=== PATIENT | female | born 1970 | race African-American/Black ===

== ENCOUNTER 2019-03-03 00:18 | Emergency (ER) | payer SELFPAY | END 2019-03-03 04:31 | disposition home or self-care (01) | LOC: JER 00:18 ==

== ENCOUNTER 2019-03-18 03:47 | Inpatient (IN) | payer OTHER ==
--- NOTE | 2019-03-18 04:04 | PDOC ---
Attending Attestation - Resident Resident Name: RazGinger - ED Attending Attestation I have performed the following: I have examined & evaluated the patient, The case was reviewed & discussed with the resident, I agree w/resident's findings & plan - HPI HPI: 03/18/19 04:59 Pt comes with total body pain and states that she needs admission for her interferon. Pt states that she has been dropping things and that her arms are weak. - Physicial Exam PE: 03/18/19 05:00 Agree with resident exam - Medical Decision Making 03/18/19 05:00 Pt will have basic labs and EKG and cxr and she have a neuro consult for MS flare. 03/18/19 19:53 Pt signed out to the day ER team. They will follow results and admit patient
[2019-03-18 04:53] VITALS: BMI 30.4
[2019-03-18 05:21] LABS: BASO % 0.7 % (0-2.0); EOS % 2.4 % (0-4.5); HEMATOCRIT 33.2 % (32.4-45.2); HEMOGLOBIN 11.5 GM/dL (10.7-15.3); LYMPH % 52.7 % (8-40); MCH 31.3 pg (25.7-33.7); MCHC 34.5 g/dl (32.0-36.0); MEAN CELL VOLUME 90.8 fl (80-96); MEAN PLT VOLUME 9.5 fl (7.5-11.1); MONO % 8.5 % (3.8-10.2); NEUT % 35.7 % (42.8-82.8); PLATELET COUNT 199 K/MM3 (134-434); RBC 3.66 M/mm3 (3.60-5.2); RDW 14.9 % (11.6-15.6); WHITE BLOOD COUNT 8.4 K/mm3 (4.0-10.0)
--- NOTE | 2019-03-18 05:36 | PDOC ---
History of Present Illness - General Chief Complaint: Pain Stated Complaint: WEAKNESS Time Seen by Provider: 03/18/19 03:57 History Source: Patient Exam Limitations: No Limitations - History of Present Illness Initial Comments: 03/18/19 05:32 48YOF with h/o MS (diagnosed 12 years ago and was well-controlled on Augabio until 6 months ago when she lost access to it) who p/w all-over body pain, hand cramps and weakness, and morning-time vision problems worsening for the past few days, typical of her MS flares. Her last MS flare was about 2 weeks ago at which time she was seen here at [facility] in the ED. She notes that usually when she has an MS flare like this, she gets admitted to the hospital for interferon infusion. She also notes that she just moved here from [place] where she had been receiving her primary care and had a regular neurologist. She has insurance but has not yet been able to establish neurology care here in [place]. EMS notes that they have taken her to other emergency departments in the area recently for similar pain. Past History - Past Medical History Allergies/Adverse Reactions: Allergies Allergy/AdvReac Type Severity Reaction Status Date / Time acetaminophen [From Vicodin] Allergy Verified 03/18/19 05:41 hydrocodone [From Vicodin] Allergy Verified 03/18/19 05:41 tramadol Allergy Verified 03/18/19 05:41 Home Medications: Ambulatory Orders Atorvastatin Calcium 40 mg PO HS 03/03/19 Cephalexin Monohydrate [Keflex -] 500 mg PO BID #14 capsule 03/03/19 Duloxetine HCl [Cymbalta] 20 mg PO DAILY 03/03/19 Lisinopril 5 mg PO DAILY 03/03/19 Oxycodone HCl/Acetaminophen [Percocet 10-325 mg Tablet] 1 each PO TID #60 tablet MDD 3 03/03/19 Prednisolone [Millipred] 5 mg PO BID 03/03/19 Teriflunomide [Aubagio] 14 mg PO DAILY 03/03/19 COPD: No - Suicide/Smoking/Psychosocial Hx Smoking History: Current every day smoker Have you smoked in the past 12 months: No Number of Cigarettes Smoked Daily: 4 Information on smoking cessation initiated: Yes Hx Alcohol Use: Yes Drug/Substance Use Hx: No Review of Systems - Review of Systems Able to Perform ROS?: Yes Comments:: 03/18/19 05:43 GEN: no fever, chills, malaise, generalized weakness, or weight change HEENT: no ear pain, sore throat, vision change, or eye pain CV: no chest pain, palpitations, lightheadedness, syncope, or edema RESP: no cough, wheezing, or SOB GI: no abdominal pain, nausea, vomiting, diarrhea, constipation, or white/black/ bloody stool : no dysuria, hematuria, incontinence, retention, bleeding, or discharge MSK: muscle weakness/pain, hand cramps NEURO: no headache, seizure, vertigo, numbness, tingling, or focal weakness PSYCH: no substance use, no behavior change SKIN: no jaundice, no rash ROS otherwise negative except as noted in HPI *Physical Exam - Vital Signs Last Vital Signs Temp Pulse Resp BP Pulse Ox 98.2 F 77 18 138/67 98 03/18/19 03:55 03/18/19 03:55 03/18/19 03:55 03/18/19 03:55 03/18/19 03:55 - Physical Exam Comments: 03/18/19 05:56 GENERAL: a bit uncomfortable but nontoxic-appearing, A/Ox4, answers questions appropriately, obese HEENT: PERRLA, EOMI, moist mucous membranes NECK/BACK: no midline ttp, no spinal stepoff or deformity, no hematoma, full ROM , neck supple CARDIOVASCULAR: regular rate/rhythm, normal S1S2, no MGR, strong peripheral pulses, capillary refill <2 seconds, extremities wwp, no edema LUNGS/RESPIRATORY: no respiratory distress, CTAB GI/ABDOMEN: symmetric [id number], normoactive BS, soft, no ttp, no midline pulsatile masses : no CVA tenderness EXTREMITIES: no muscle atrophy, no acute deformity SKIN: warm and dry, no pallor, no jaundice, no rash, no bruising, no skin breakdown, no cuts, no lesions NEUROLOGICAL: GCS 15, CN II-XII grossly intact, 5/5 strength proximally and distally, no facial droop Heart Score/ECG Review #1 Sinus rhythm, rate of 71, normal axis and intervals, TWI in III and aVF, no other ST-T changes ED Treatment Course - LABORATORY CBC & Chemistry Diagram: 03/19/19 06:40 03/19/19 06:40 - ADDITIONAL ORDERS Additional order review: 03/18/19 05:12 RBC 3.66 MCV 90.8 MCHC 34.5 RDW 14.9 MPV 9.5 Neutrophils % 35.7 L Lymphocytes % 52.7 H Monocytes % 8.5 Eosinophils % 2.4 Basophils % 0.7 Medical Decision Making - Medical Decision Making 48YOF with h/o MS p/w stated flare with body aches, hand weakness, and vision changes. Initial Vital Signs Temp Pulse Resp BP Pulse Ox 98.2 F 77 18 138/67 98 03/18/19 03:55 03/18/19 03:55 03/18/19 03:55 03/18/19 03:55 03/18/19 03:55 Physical Exam: As noted in physical exam section. Most likely MS flare given patient's description of prior episodes and the fact she has been unable to take her maintenance medication. Much less likely but still considered are electrolyte derangement, viral syndrome, hypothyroidism, other endocrine disorder, anemia, etc. It is unclear why the patient may have gotten interferon infusion in the past for this (she states "1000 a day for three days interferon infusion"). Will call neurology for recommendations and consultation. EKG: Reviewed; see HEART Score/ECG Section. Laboratory Tests 03/18/19 03/18/19 05:12 05:12 WBC 8.4 RBC 3.66 Hgb 11.5 Hct 33.2 MCV 90.8 MCH 31.3 MCHC 34.5 RDW 14.9 Plt Count 199 MPV 9.5 Absolute Neuts (auto) 3.0 Neutrophils % 35.7 L Lymphocytes % 52.7 H Monocytes % 8.5 Eosinophils % 2.4 Basophils % 0.7 Nucleated RBC % 0 Sodium 144 Potassium 3.6 Chloride 110 H Carbon Dioxide 28 Anion Gap 7 L BUN 27.4 H Creatinine 1.1 Est GFR (CKD-EPI)AfAm 68.27 Est GFR (CKD-EPI)NonAf 58.91 Random Glucose 119 H Calcium 8.6 Total Bilirubin 0.2 AST 23 ALT 39 Alkaline Phosphatase 132 H Total Protein 6.2 L Albumin 3.4 03/18/19 05:[address] Kearns. He will see her in the hospital, recommends solumedrol 500 bid. SoluMedrol 500 mg IVPB order placed. The Pt is unsafe for discharge at this time. They require further hospital observation, workup, and treatment. Microblog sent to [facility] for admission (PCP is Matty Everett). Blank Decision to Admit order is placed per ED protocol. RAD/CHEST X-RAY PORTABLE* Chest: Admission. Cough. There are no prior studies for comparison. A single view of the chest reveals clear well aerated lungs, normal mediastinum and sharp angles. An acute process is not seen. There may be some linear platelike atelectasis or scarring at the left base. The costophrenic angles are sharp. The bones and soft tissues are intact. Impression : No acute chest pathology. Possible linear scarring or atelectasis left base. *DC/Admit/Observation/Transfer Diagnosis at time of Disposition: Multiple sclerosis - Discharge Dispostion Condition at time of disposition: Guarded Decision to Admit order: Yes - Referrals - Patient Instructions - Post Discharge Activity
[2019-03-18 05:44] LABS: ALBUMIN 3.4 g/dl (3.4-5.0); BILIRUBIN,TOTAL 0.2 mg/dL (0.2-1); BLOOD UREA NITROGEN 27.4 mg/dL (7-18); CALCIUM 8.6 mg/dL (8.5-10.1); CREATININE 1.1 mg/dL (0.55-1.3); POTASSIUM 3.6 mmol/L (3.5-5.1); TOT PROT 6.2 g/dl (6.4-8.2)
[2019-03-18] MEDS ORDERED: methylPREDNISolone NA SUCC 125 MG/2 ML VIAL IVPB ONE (06:05)
[2019-03-18] MEDS ORDERED: methylPREDNISolone NA SUCC 125 MG/2 ML VIAL ONE (06:29)
[2019-03-18 07:23] LABS: EPI CELLS 0.6 /HPF (0-5/HPF); HYALINE CASTS 2 /lpf (0-8); URINE APPEARANCE CLEAR; URINE BACTERIA 372.8 /hpf (NEGATIVE); URINE BILIRUBIN NEGATIVE (NEGATIVE); URINE COLOR YELLOW; URINE GLUCOSE (UA) NEGATIVE (NEGATIVE); URINE KETONE NEGATIVE (NEGATIVE); URINE LEUK ESTERASE 1+ (NEGATIVE); URINE NITRITE NEGATIVE (NEGATIVE); URINE PROTEIN NEGATIVE (NEGATIVE); URINE RBC 1 /hpf (0-4); URINE UROBILINOGEN 0.2 mg/dL (0.2-1.0); URINE WBC 1 /hpf (0-5)
--- NOTE | 2019-03-18 10:04 | CON.NEURO ---
Consult - Alcohol/Substance Use Hx Alcohol Use: Yes - Smoking History Smoking history: Current every day smoker Have you smoked in the past 12 months: No Aproximately how many cigarettes per day: 4 Home Medications - Allergies Allergies/Adverse Reactions: Allergies Allergy/AdvReac Type Severity Reaction Status Date / Time acetaminophen [From Vicodin] Allergy Verified 03/18/19 05:41 hydrocodone [From Vicodin] Allergy Verified 03/18/19 05:41 tramadol Allergy Verified 03/18/19 05:41 - Home Medications Home Medications: Ambulatory Orders Atorvastatin Calcium 40 mg PO HS 03/03/19 Cephalexin Monohydrate [Keflex -] 500 mg PO BID #14 capsule 03/03/19 Duloxetine HCl [Cymbalta] 20 mg PO DAILY 03/03/19 Lisinopril 5 mg PO DAILY 03/03/19 Oxycodone HCl/Acetaminophen [Percocet 10-325 mg Tablet] 1 each PO TID #60 tablet MDD 3 03/03/19 Prednisolone [Millipred] 5 mg PO BID 03/03/19 Teriflunomide [Aubagio] 14 mg PO DAILY 03/03/19 Physical Exam-Neuro Vital Signs: Vital Signs Temperature 98.0 F 03/18/19 08:31 Pulse Rate 65 03/18/19 08:31 Respiratory Rate 18 03/18/19 08:31 Blood Pressure 149/90 03/18/19 08:31 O2 Sat by Pulse Oximetry (%) 97 03/18/19 08:31 Labs: CBC, BMP 03/18/19 05:12 03/18/19 05:12 Assessment/Plan cc pain and cramping . numbness waist down HPI 48 year old AA female , originally from [place]. She recenlty move to [place] two weeks ago. She has hiistory of MS, MS , HTN. She has not seen neurologist for one year and she is not taking aubagio for six months. Patient also have histoyr of depression and being treated with cymbalta. She came to hospital as she felt she need to be treated with steroid. She do get thsese cramps in leg and worsenign of numbness in both thigh area. Patient is able to walk wtih walker. She usually get treated with iv steroid when she has these symptoms. PMH MS, HTN, Anxiety , hld Past History Allergies Allergy/AdvReac TypA Severity Reaction Status Date / Time acetaminophen [From Vicodin] Allergy Verified 03/18/19 05:41 hydrocodone [From Vicodin] Allergy Verified 03/18/19 05:41 tramadol Allergy Verified 03/18/19 05:41 Home Medications: Atorvastatin Calcium 40 mg PO HS 03/03/19 Cephalexin Monohydrate [Keflex -] 500 mg PO BID #14 capsule 03/03/19 Duloxetine HCl [Cymbalta] 20 mg PO DAILY 03/03/19 Lisinopril 5 mg PO DAILY 03/03/19 Oxycodone HCl/Acetaminophen [Percocet 10-325 mg Tablet] 1 each PO TID #60 tablet MDD 3 03/03/19 Prednisolone [Millipred] 5 mg PO BID 03/03/19 Teriflunomide [Aubagio] 14 mg PO DAILY 03/03/19 ROS, FH reviewed in chart NEUROLOGICAL EXAMINATION Alert oriented x 3, speech is normal, neck supple, vss eomi, pupils reactive, no face asymmetry, face sensation is normal , vf is normal motor 5/5 in upper extremity lower extremity grade 4 distally in dorsiflexion proximal hip flexion and extension 5- and she is able to walk diminished sensation below both groin area to pin prick and fine touch sensation in upper extremity is normal reflex are generalized diminished No imaging available Assessment/Plan MS ofr 15 years uses cane to ambulate and suppseo to be on Aubagio. Plan: I would do mri of brain, t and L spine with contrast - iv solumedrol for three days - pt - resume home medication Thanking you so much Navin Kearns MD
[2019-03-18] MEDS ORDERED: oxyCODONE HCL 5 MG TABLET PO PRN (10:06)
[2019-03-18] MEDS ORDERED: methylPREDNISolone NA SUCC 1000 MG/8 ML VIAL IVPB SCH (10:15)
--- NOTE | 2019-03-18 11:38 | HP ---
CHIEF COMPLAINT: lower extremity pain/numbness (MS flare) PCP:Dr. Everett HISTORY OF PRESENT ILLNESS: 48 y/o female with PMH of MS (diagnosed 12 years ago), HTN, HLD presents to the ED with an MS flare- patient states that for the past 4-5 days she has been having worsening lower extremity pain/weakness, difficulty gripping onto certain items and has been having worsening vision changes in the AM. She has been living in a jail with her son and had taken over cooking duties for the past few days and was on her feet fredy more than usual and she thinks this may have caused her MS to flare up. she states that this is typical of her MS flares. She moved her 2 weeks ago from [place], and has not seen a neurologist in 6 months nor has she had access to her medication (augabio) for the same amount of time. she states that when she had been getting MS flares in the past 6 months she has been putting topical creams like icy/hot on with minimal relief, she states that the pain got so severe over the past few days which prompted her to come to the ER> she denies any systemic symptoms, sick contacts or recent travel. ER course was notable for: (1)vitals and labs wnl (2)dr. camacho consulted (3)given 500mg solumedrol and to cont BID for 3 days Recent Travel: moved from [place] 2 weeks ago PAST MEDICAL HISTORY: see above PAST SURGICAL HISTORY: partial hysterectomy; 2 knee surgeries Social History: Smoking:current everyday smoker ; smokes 12 cigarettes since the age of 20 Alcohol:denies Drugs: denies Family History: mom: DM/HTN, paternal grandmother breast CA, maternal grandfather leukemia Allergies acetaminophen [From Vicodin] Allergy (Verified 03/18/19 05:41) hydrocodone [From Vicodin] Allergy (Verified 03/18/19 05:41) tramadol Allergy (Verified 03/18/19 05:41) HOME MEDICATIONS: Home Medications Medication Instructions Recorded Atorvastatin Calcium 40 mg PO HS 03/03/19 Cephalexin Monohydrate [Keflex -] 500 mg PO BID #14 capsule 03/03/19 Duloxetine HCl [Cymbalta] 20 mg PO DAILY 03/03/19 Lisinopril 5 mg PO DAILY 03/03/19 Oxycodone HCl/Acetaminophen 1 each PO TID #60 tablet MDD 3 03/03/19 [Percocet 10-325 mg Tablet] Prednisolone [Millipred] 5 mg PO BID 03/03/19 Teriflunomide [Aubagio] 14 mg PO DAILY 03/03/19 REVIEW OF SYSTEMS CONSTITUTIONAL: Absent: fever, chills, diaphoresis, generalized weakness, malaise, loss of appetite, weight change HEENT: Absent: rhinorrhea, nasal congestion, throat pain, throat swelling, difficulty swallowing, mouth swelling, ear pain, eye pain, visual changes CARDIOVASCULAR: Absent: chest pain, syncope, palpitations, irregular heart rate, lightheadedness , peripheral edema RESPIRATORY: Absent: cough, shortness of breath, dyspnea with exertion, orthopnea, wheezing, stridor, hemoptysis GASTROINTESTINAL: Absent: abdominal pain, abdominal distension, nausea, vomiting, diarrhea, constipation, melena, hematochezia GENITOURINARY: Absent: dysuria, frequency, urgency, hesitancy, hematuria, flank pain, genital pain MUSCULOSKELETAL: Present: myalgia, arthraliga Absent:, joint swelling, back pain, neck pain SKIN: Absent: rash, itching, pallor HEMATOLOGIC/IMMUNOLOGIC: Absent: easy bleeding, easy bruising, lymphadenopathy, frequent infections ENDOCRINE: Absent: unexplained weight gain, unexplained weight loss, heat intolerance, cold intolerance NEUROLOGIC: Absent: headache, focal weakness or paresthesias, dizziness, unsteady gait, seizure, mental status changes, bladder or bowel incontinence PSYCHIATRIC: Absent: anxiety, depression, suicidal or homicidal ideation, hallucinations. PHYSICAL EXAMINATION Vital Signs - 24 hr 03/18/19 03/18/19 03:55 08:31 Temperature 98.2 F 98.0 F Pulse Rate 77 Pulse Rate [ 65 Left Radial] Respiratory 18 18 Rate Blood Pressure 138/67 Blood Pressure 149/90 [Right Arm] O2 Sat by Pulse 98 97 Oximetry (%) GENERAL: Awake, alert, and fully oriented, in slight acute distress. EYES: PEERLA: EOMIl; no scleral icterus . NECK: no JVD:no lymphadenopathy LUNGS: CTA B/L; no rales, rhonchi or wheezing HEART: Regular rate and rhythm, normal S1 and S2 without murmur, rub or gallop. ABDOMEN: Soft, nontender, not distended, normoactive bowel sounds, no guarding, no rebound, no masses. No hepatomegaly or splenomegaly. EXTREMITIES: warm; well-perfused no clubbing/cyanosis or edema NEUROLOGICAL: Cranial nerves II-XII intact. Normal speech. Normal gait. UE B/L 5/5 strength B/L sensation intact throghout; B/L LE 3-4/5 strength B/L diminished sensation with SKIN: Warm, dry, normal turgor, no rashes or lesions noted, normal capillary refill. Laboratory Results - last 24 hr 03/18/19 03/18/19 03/18/19 05:12 05:12 06:10 WBC 8.4 RBC 3.66 Hgb 11.5 Hct 33.2 MCV 90.8 MCH 31.3 MCHC 34.5 RDW 14.9 Plt Count 199 MPV 9.5 Absolute Neuts (auto) 3.0 Neutrophils % 35.7 L Lymphocytes % 52.7 H Monocytes % 8.5 Eosinophils % 2.4 Basophils % 0.7 Nucleated RBC % 0 Sodium 144 Potassium 3.6 Chloride 110 H Carbon Dioxide 28 Anion Gap 7 L BUN 27.4 H Creatinine 1.1 Est GFR (CKD-EPI)AfAm 68.27 Est GFR (CKD-EPI)NonAf 58.91 Random Glucose 119 H Calcium 8.6 Total Bilirubin 0.2 AST 23 ALT 39 Alkaline Phosphatase 132 H Total Protein 6.2 L Albumin 3.4 Urine Color Yellow Urine Appearance Clear Urine pH 5.0 Ur Specific [place] 1.006 L Urine Protein Negative Urine Glucose (UA) Negative Urine Ketones Negative Urine Blood Negative Urine Nitrite Negative Urine Bilirubin Negative Urine Urobilinogen 0.2 Ur Leukocyte Esterase 1+ H Urine WBC (Auto) 1 Urine RBC (Auto) 1 Urine Casts (Auto) 2 U Epithel Cells (Auto) 0.6 Urine Bacteria (Auto) 372.8 ASSESSMENT/PLAN: 48 y/o female with PMH of MS (diagnosed 12 years ago), HTN, HLD presents to the ED with 4-5 days of worsening lower extremity pain/weakness, difficulty gripping onto certain items and has been having worsening vision changes in the AM likely 2/2 MS #MS flare patients is likely having an MS flare -already received 500mg solumedrol x1 -will c/w 500 mg solumedrol BID for 3 days -Dr. Kearns consulted -OLI brain, thoracic/lumbar spine ordered -PRN oxy for pain -will need outpatient neuro referral upon d/c -PT eval #HTN c/w lisinopril 5mg daily #HLD c/w atorvastatin F/E/N not on fluids monitor electrolytes soidum controlled diet DVT PPX: lovenox Problem List - Problem (1) HTN (hypertension) Code(s): I10 - ESSENTIAL (PRIMARY) HYPERTENSION (2) Multiple sclerosis Code(s): G35 - MULTIPLE SCLEROSIS Visit type - Emergency Visit Emergency Visit: Yes ED Registration Date: 03/18/19 Care time: The patient presented to the Emergency Department on the above date and was hospitalized for further evaluation of their emergent condition. - New Patient This patient is new to me today: Yes Date on this admission: 03/18/19 - Critical Care Critical Care patient: No ATTENDING PHYSICIAN STATEMENT I saw and evaluated the patient. I reviewed the resident's note and discussed the case with the resident. I agree with the resident's findings and plan as documented. SUBJECTIVE: OBJECTIVE: ASSESSMENT AND PLAN:
[2019-03-18] MEDS: ENOXAPARIN NA (PORCINE) 40 MG/0.4 ML DISP.SYRIN SQ SCH (12:08)
[2019-03-18] MEDS: LISINOPRIL 5 MG TABLET (FP) PO SCH (12:09)
[2019-03-18] MEDS: NICOTINE 7 MG/24 HOURS TOPICAL PATCH TD SCH (12:09)
[2019-03-18] MEDS ORDERED: MORPHINE SULFATE 2 MG/ML VIAL IVPB ONE (12:30)
--- NOTE | 2019-03-18 12:30 | PN ---
Teaching Attending Note Name of Resident: Bernadette Ley ATTENDING PHYSICIAN STATEMENT I saw and evaluated the patient. I reviewed the resident's note and discussed the case with the resident. I agree with the resident's findings and plan as documented. SUBJECTIVE:48yo f wtih PMH HTN, dyslipidemia and MS who has not been taking Aubagio for about 6 months now (family issues) presented to the ER with progressively worsening blurred vision,. assoc with numbness and tingling of her hands and feet,. similiar presentations in previous flares. has been hospitalized twice in the past for high dose steroids iwth relief. denies CP, SOB, fever, chills, N/V/C/D ambulates with RW OBJECTIVE: Last Vital Signs Temp Pulse Resp BP Pulse Ox 98.0 F 65 18 149/90 97 03/18/19 08:31 03/18/19 08:31 03/18/19 08:31 03/18/19 08:31 03/18/19 08:31 General NAd HEENT EOMI, PERRL Cv S1 S2 RRR no murmur/rub/gallop Neuro CN grossly intact, ASSESSMENT AND PLAN: 48yo F with PMH hNT, dyslipidemia, depression, and MS presented to the ER with blurred vision wiht numbnes in all extremities presenting with MS flare 1. MS Flare- admit to medicine. no signs of infection. start on Medrol 500mg BID for 3 days and pain control. will obtain MRI of brain cervical and lumbar spine to r/o stenosis vs plaquing. just moved here from [place]. will need to establish neurology follow up to be re-started on medications. monitor sugars while on high dose steroids 2. HTN- re-start home medications 3. Dyslipidemia- statin 4. depression- cymbalta 5. DVT ppx- lovenox
--- NOTE | 2019-03-18 14:19 | EKG ---
Test Reason : Blood Pressure : / mmHG Vent. Rate : 071 BPM Atrial Rate : 071 BPM P-R Int : 120 ms QRS Dur : 088 ms QT Int : 382 ms P-R-T Axes : 053 080 024 degrees QTc Int : 415 ms NORMAL SINUS RHYTHM NONSPECIFIC T WAVE ABNORMALITY ABNORMAL ECG NO PREVIOUS ECGS AVAILABLE Confirmed by MD Aneudy, Papito ([id number]) on 03/18/2019 2:18:41 PM Referred By: Confirmed By:Papito Amado MD
[2019-03-18] MEDS: DULoxetine HCL 20 MG CAPSULE.DR PO SCH (14:57)
[2019-03-18] MEDS ORDERED: PT OWN MED DRAWER 7, Y5N ONE (17:24)
[2019-03-18] MEDS: methylPREDNISolone NA SUCC 1000 MG/8 ML VIAL IVPB SCH (17:29)
[2019-03-18] MEDS: oxyCODONE HCL 5 MG TABLET PO PRN (18:22)
[2019-03-18] MEDS ORDERED: morphine SULFATE 4 MG/ML VIAL IVPUSH ONE (20:19)
[2019-03-18] MEDS: ATORVASTATIN CA 40 MG TABLET (FP) PO SCH (22:14)
[2019-03-18] MEDS: MELATONIN 1 MG TABLET PO SCH (22:14)
[2019-03-19] MEDS: oxyCODONE HCL 5 MG TABLET PO PRN ×5 (04:33→22:54)
[2019-03-19] MEDS: methylPREDNISolone NA SUCC 1000 MG/8 ML VIAL IVPB SCH ×2 (06:26→17:30)
[2019-03-19 07:42] LABS: BASO % 0.2 % (0-2.0); HEMATOCRIT 35.3 % (32.4-45.2); HEMOGLOBIN 11.8 GM/dL (10.7-15.3); LYMPH % 13.1 % (8-40); MCH 30.7 pg (25.7-33.7); MCHC 33.4 g/dl (32.0-36.0); MEAN CELL VOLUME 91.9 fl (80-96); MEAN PLT VOLUME 10.5 fl (7.5-11.1); MONO % 3.7 % (3.8-10.2); PLATELET COUNT 194 K/MM3 (134-434); RBC 3.84 M/mm3 (3.60-5.2); RDW 14.6 % (11.6-15.6); WHITE BLOOD COUNT 21.8 K/mm3 (4.0-10.0)
[2019-03-19 07:51] LABS: ALBUMIN 3.5 g/dl (3.4-5.0); BILIRUBIN,TOTAL 0.3 mg/dL (0.2-1); BLOOD UREA NITROGEN 21.4 mg/dL (7-18); CALCIUM 9.3 mg/dL (8.5-10.1); CREATININE 0.8 mg/dL (0.55-1.3); MAGNESIUM 2.1 mg/dL (1.8-2.4); POTASSIUM 4.4 mmol/L (3.5-5.1); TOT PROT 6.5 g/dl (6.4-8.2)
[2019-03-19] MEDS: POLYETHYLENE GLYCOL 3350 119 GM BTL PO SCH ×2 (08:33→10:12)
[2019-03-19] MEDS: NICOTINE 7 MG/24 HOURS TOPICAL PATCH TD SCH ×2 (08:34→10:12)
[2019-03-19] MEDS: DULoxetine HCL 20 MG CAPSULE.DR PO SCH ×2 (08:34→10:12)
[2019-03-19] MEDS: LISINOPRIL 5 MG TABLET (FP) PO SCH ×2 (08:35→10:13)
[2019-03-19] MEDS: DOCUSATE SODIUM 100 MG CAPSULE (FP) PO SCH ×3 (08:35→22:37)
[2019-03-19] MEDS: ENOXAPARIN NA (PORCINE) 40 MG/0.4 ML DISP.SYRIN SQ SCH ×2 (08:35→10:12)
--- NOTE | 2019-03-19 10:09 | PN ---
Progress Note (short form) - Note Progress Note: 48 year old AA female , originally from [place]. She recenlty move to [place] two weeks ago. She has hiistory of MS, MS , HTN. She has not seen neurologist for one year and she is not taking aubagio for six months. Patient also have histoyr of depression and being treated with cymbalta. She came to hospital as she felt she need to be treated with steroid. She do get thsese cramps in leg and worsenign of numbness in both thigh area. Patient is able to walk wtih walker. She usually get treated with iv steroid when she has these symptoms. She is feeling slightly better, no new symtoms. Pain is better on oxycodone and waiting for mri of spine. NEUROLOGICAL EXAMINATION Alert oriented x 3, speech is normal, neck supple, vss eomi, pupils reactive, no face asymmetry, face sensation is normal , vf is normal motor 5/5 in upper extremity lower extremity grade 4 distally in dorsiflexion proximal hip flexion and extension 5- and she is able to walk diminished sensation below both groin area to pin prick and fine touch sensation in upper extremity is normal reflex are generalized diminished No imaging available Assessment/Plan MS of 15 years uses cane to ambulate and supposed to be on Aubagio. Patient came with worsening of pain and acute exacerbation. Plan: I would do mri of brain, t and L spine with contrast - iv solumedrol for three days - pt - resume home medication - would need outpatient neurology follow up Thanking you so much Navin Kearns MD
[2019-03-19 11:17] LABS: ANISOCYTOSIS 0; MACROCYTOSIS 0; PLATELET ESTIMATE NORMAL
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
--- NOTE | 2019-03-19 12:53 | PN ---
Teaching Attending Note Name of Resident: Bernadine Price ATTENDING PHYSICIAN STATEMENT I saw and evaluated the patient. I reviewed the resident's note and discussed the case with the resident. I agree with the resident's findings and plan as documented. SUBJECTIVE:blurred vision slightly improved. diffuse aches also has some slight improvement. denies CP, SOB, fever, chills, N/V/C/D OBJECTIVE: Last Vital Signs Temp Pulse Resp BP Pulse Ox 97.8 F 64 18 149/80 94 L 03/19/19 10:03/19/19 10:00 03/19/19 10:00 03/19/19 10:03/19/19 09:00 General NAd HEENT EOMI, PERRL Cv S1 S2 RRR no murmur/rub/gallop Neuro CN grossly intact, ASSESSMENT AND PLAN: 48yo F with PMH hNT, dyslipidemia, depression, and MS presented to the ER with blurred vision wiht numbnes in all extremities presenting with MS flare 1. MS Flare- slight improvement. MRI head and spine to evaluate extent of disease. on medrol 500mg BID. pain control. neuro on board. will d/w if plan to re-start meds on discharge. 2. HTN-above goal. could be elevated due to pain. may need to titrate meds if persists once pain is controlled 3. Dyslipidemia- statin 4. depression- cymbalta 5. DVT ppx- lovenox
[2019-03-19] MEDS ORDERED: morphine SULFATE 4 MG/ML VIAL IVPUSH ONE (22:28)
[2019-03-19] MEDS ORDERED: morphine SULFATE 4 MG/ML VIAL ONE (22:34)
[2019-03-19] MEDS: ATORVASTATIN CA 40 MG TABLET (FP) PO SCH (22:37)
[2019-03-19] MEDS: MELATONIN 1 MG TABLET PO SCH (22:37)
[2019-03-20 07:28] LABS: BASO % 0.1 % (0-2.0); HEMATOCRIT 33.9 % (32.4-45.2); HEMOGLOBIN 11.4 GM/dL (10.7-15.3); LYMPH % 8.1 % (8-40); MCH 30.5 pg (25.7-33.7); MCHC 33.6 g/dl (32.0-36.0); MEAN PLT VOLUME 10.1 fl (7.5-11.1); MONO % 4.3 % (3.8-10.2); NEUT % 87.5 % (42.8-82.8); PLATELET COUNT 201 K/MM3 (134-434); RBC 3.72 M/mm3 (3.60-5.2); RDW 15.1 % (11.6-15.6)
[2019-03-20 07:59] LABS: ALBUMIN 3.6 g/dl (3.4-5.0); BILIRUBIN,TOTAL 0.3 mg/dL (0.2-1); BLOOD UREA NITROGEN 25.7 mg/dL (7-18); CALCIUM 9.3 mg/dL (8.5-10.1); CREATININE 0.9 mg/dL (0.55-1.3); MAGNESIUM 2.2 mg/dL (1.8-2.4); POTASSIUM 4.3 mmol/L (3.5-5.1); TOT PROT 6.7 g/dl (6.4-8.2)
--- NOTE | 2019-03-20 08:48 | PN ---
Progress Note (short form) - Note Progress Note: 48 year old AA female , originally from [place]. She recenlty move to [place] two weeks ago. She has hiistory of MS, MS , HTN. She has not seen neurologist for one year and she is not taking aubagio for six months. Patient also have histoyr of depression and being treated with cymbalta. She came to hospital as she felt she need to be treated with steroid. She do get thsese cramps in leg and worsenign of numbness in both thigh area. Patient is able to walk wtih walker. She usually get treated with iv steroid when she has these symptoms. She is feeling slightly better, no new symtoms. Pain is better on oxycodone and waiting for mri of spine. NEUROLOGICAL EXAMINATION Alert oriented x 3, speech is normal, neck supple, vss eomi, pupils reactive, no face asymmetry, face sensation is normal , vf is normal motor 5/5 in upper extremity lower extremity grade 4 distally in dorsiflexion proximal hip flexion and extension 5- and she is able to walk diminished sensation below both groin area to pin prick and fine touch sensation in upper extremity is normal reflex are generalized diminished mri done and results sharona pending Assessment/Plan MS of 15 years uses cane to ambulate and supposed to be on Aubagio. Patient came with worsening of pain and acute exacerbation. Plan: MRI of L and T spine done and results pending, mri of brain due today - iv solumedrol for three days finshes today , can be discharge after solumedrol - pt - follow up with her neurologist as outpatient Thanking you so much Navin Kearns MD
[2019-03-20] MEDS: DULoxetine HCL 20 MG CAPSULE.DR PO SCH (09:46)
[2019-03-20] MEDS: LISINOPRIL 5 MG TABLET (FP) PO SCH (09:46)
[2019-03-20] MEDS: ENOXAPARIN NA (PORCINE) 40 MG/0.4 ML DISP.SYRIN SQ SCH (09:46)
[2019-03-20] MEDS: DOCUSATE SODIUM 100 MG CAPSULE (FP) PO SCH ×2 (09:46→22:24)
[2019-03-20] MEDS: NICOTINE 7 MG/24 HOURS TOPICAL PATCH TD SCH (09:47)
[2019-03-20] MEDS: POLYETHYLENE GLYCOL 3350 119 GM BTL PO SCH (09:48)
[2019-03-20 12:40] LABS: ANISOCYTOSIS 0; MACROCYTOSIS 0; PLATELET ESTIMATE NORMAL
[2019-03-20] MEDS: oxyCODONE HCL 5 MG TABLET PO PRN ×3 (14:00→22:29)
--- NOTE | 2019-03-20 14:45 | PN ---
Teaching Attending Note Name of Resident: Bernadine Price ATTENDING PHYSICIAN STATEMENT I saw and evaluated the patient. I reviewed the resident's note and discussed the case with the resident. I agree with the resident's findings and plan as documented. SUBJECTIVE: Some improvement in LE weakness, tingling. Pain appears controlled on oxycodone. No fever/chills. No headache or further visual disturbance. OBJECTIVE: Afebrile, Hemodynamically Stable. Last Vital Signs Temp Pulse Resp BP Pulse Ox 98.0 F 66 20 151/92 97 03/20/19 06:00 03/20/19 10:00 03/20/19 10:00 03/20/19 10:00 03/19/19 21:00 HEENT - Atraumatic, Normocephalic. Heart - S1, S2, SM Lungs - clear to auscultation Abdomen - Soft, non-tender. Bowel Sounds normal. Extremities - no edema, no calf tenderness. Neuro - AAO x 3. Reduced Power bilateral LEs 4/5 Laboratory Results - last 24 hr 03/20/19 03/20/19 06:50 06:50 WBC 25.0 H RBC 3.72 Hgb 11.4 Hct 33.9 MCV 91.0 MCH 30.5 MCHC 33.6 RDW 15.1 Plt Count 201 MPV 10.1 Absolute Neuts (auto) 21.9 H Neutrophils % 87.5 H Neutrophils % (Manual) 82.0 Band Neutrophils % 0.0 Lymphocytes % 8.1 D Lymphocytes % (Manual) 13.0 Monocytes % 4.3 Monocytes % (Manual) 5 Eosinophils % 0.0 Eosinophils % (Manual) 0.0 Basophils % 0.1 Basophils % (Manual) 0.0 Myelocytes % (Man) 0 Promyelocytes % (Man) 0 Blast Cells % (Manual) 0 Nucleated RBC % 0 Metamyelocytes 0 Hypochromia 0 Platelet Estimate Normal Polychromasia 0 Poikilocytosis 0 Anisocytosis 0 Microcytosis 0 Macrocytosis 0 Sodium 140 Potassium 4.3 Chloride 107 Carbon Dioxide 27 Anion Gap 6 L BUN 25.7 H Creatinine 0.9 Est GFR (CKD-EPI)AfAm 87.02 Est GFR (CKD-EPI)NonAf 75.08 Random Glucose 203 H Calcium 9.3 Phosphorus 3.0 Magnesium 2.2 Total Bilirubin 0.3 AST 13 L ALT 36 Alkaline Phosphatase 103 Total Protein 6.7 Albumin 3.6 Current Medications Generic Name Dose Route Start Last Admin Trade Name Phil PRN Reason Stop Dose Admin Atorvastatin Calcium 40 mg 03/18/19 22:00 03/19/19 22:37 Lipitor - PO 40 mg HS [facility] Administration Docusate Sodium 100 mg 03/19/19 10:00 03/20/19 09:46 Colace - PO 100 mg BID [facility] Administration Duloxetine HCl 20 mg 03/18/19 11:15 03/20/19 09:46 Cymbalta - PO 20 mg DAILY [facility] Administration Enoxaparin Sodium 40 mg 03/18/19 10:00 03/20/19 09:46 Lovenox - SQ 40 mg DAILY [facility] Administration Lisinopril 5 mg 03/18/19 11:15 03/20/19 09:46 Prinivil PO 5 mg DAILY [facility] Administration Melatonin 3 mg 03/18/19 22:00 03/19/19 22:37 Melatonin PO 3 mg HS [facility] Administration Methylprednisolone Sodium Succinate 500 mg 03/18/19 11:35 03/19/19 17:30 Solu-Medrol - IVPB 500 mg BID@0600,1800 [facility] Administration Nicotine 7 mg 03/18/19 11:15 03/20/19 09:47 Nicoderm Patch - TD 7 mg DAILY [facility] Administration Oxycodone HCl 10 mg 03/18/19 12:31 03/20/19 14:00 Roxicodone - PO 10 mg Q4H PRN Administration PAIN LEVEL 6-10 Polyethylene Glycol 17 gm 03/19/19 10:00 03/20/19 09:48 Miralax (For Daily Use) - PO Not Given DAILY [facility] Home Medications Medication Instructions Recorded Atorvastatin Calcium 40 mg PO HS 03/03/19 Cephalexin Monohydrate [Keflex -] 500 mg PO BID #14 capsule 03/03/19 Duloxetine HCl [Cymbalta] 20 mg PO DAILY 03/03/19 Lisinopril 5 mg PO DAILY 03/03/19 Oxycodone HCl/Acetaminophen 1 each PO TID #60 tablet MDD 3 03/03/19 [Percocet 10-325 mg Tablet] Prednisolone [Millipred] 5 mg PO BID 03/03/19 Teriflunomide [Aubagio] 14 mg PO DAILY 03/03/19 ASSESSMENT AND PLAN: 48 year old female with history of HLD, Depression, Multiple Sclerosis, presented with bilateral LE weakness, numbness, hand weakness, blurred vision. 1. Acute MS Flare Evaluated by Neuro MRI L/S Spine - bilateral pelvic cysts, no spinal cord lesions. Day 3 IV Solumedrol (Leukocytosis sec to Steroid) Walks with Walker/PT For out-patient PT on discharge to [facility] Declines MRi at this time - amenable to out-patient MRI and Neurology out- patient follow up. Due to LE pain, asking for Oxycodone on discharge. Will give 3 days supply - patient advised to see her PCP on discharge. 2. HTN - continue Lisinopril. 3. Depression - continue Cymbalta 4. Urine Cx - Klebsiella. asymptomatic, but given underlying diagnosis of MS and tendency to bladder neurogenicity and infection prone, will treat empirically with 3 days Levofloxacin. DVT Px - Lovenox SQ
[2019-03-20] MEDS ORDERED: levoFLOXacin 750 MG TABLET PO SCH (15:00)
--- NOTE | 2019-03-20 15:30 | PN ---
Physical Exam: SUBJECTIVE: Patient seen and examined. In no aute distress. Leg pain/ weakness improving significantly. S/p 3 days IV steroid course today. Pt to have MRI brain today. Requested previous MRI records from Dr. Turner pt's neurologist in [place]. OBJECTIVE: Vital Signs Period Temp Pulse Resp BP Sys/Casarez Pulse Ox Last 24 Hr 97.8 F-98.0 F 63-66 18-20 138-151/75-92 97 GENERAL: The patient is awake, alert, and fully oriented, in no acute distress. HEENT: NCAT. No lymphadenopathy. LUNGS: Breath sounds equal, clear to auscultation bilaterally, no wheezes, no crackles, no accessory muscle use. HEART: Regular rate and rhythm, S1, S2 without murmur, rub or gallop. ABDOMEN: Soft, nontender, nondistended, normoactive bowel sounds, no guarding, no rebound, no masses. EXTREMITIES: 2+ pulses, warm, well-perfused, no edema. NEUROLOGICAL: Loss of sensation CN V V1-V3 left side. Diminished sensation b/l LE R>L. 3/5 motor b/l LE &UE. Decr ROM UE & LE. PSYCH: Good mood. Affect appropriate to mood. SKIN: Warm, dry, normal turgor, no rashes or lesions noted Laboratory Results - last 24 hr Active Medications Current Medications Atorvastatin Calcium (Lipitor -) 40 mg PO HS [facility] Last Admin: 03/19/19 22:37 Dose: 40 mg Docusate Sodium (Colace -) 100 mg PO BID [facility] Last Admin: 03/20/19 09:46 Dose: 100 mg Duloxetine HCl (Cymbalta -) 20 mg PO DAILY [facility] Last Admin: 03/20/19 09:46 Dose: 20 mg Enoxaparin Sodium (Lovenox -) 40 mg SQ DAILY [facility] Last Admin: 03/20/19 09:46 Dose: 40 mg Levofloxacin (Levaquin) 750 mg PO DAILY@0600 [facility] Lisinopril (Prinivil) 5 mg PO DAILY [facility] Last Admin: 03/20/19 09:46 Dose: 5 mg Melatonin (Melatonin) 3 mg PO HS [facility] Last Admin: 03/19/19 22:37 Dose: 3 mg Methylprednisolone Sodium Succinate (Solu-Medrol -) 500 mg IVPB BID@0600,1800 [facility] Last Admin: 03/19/19 17:30 Dose: 500 mg Nicotine (Nicoderm Patch -) 7 mg TD DAILY [facility] Last Admin: 03/20/19 09:47 Dose: 7 mg Oxycodone HCl (Roxicodone -) 5 mg PO Q4H PRN PRN Reason: PAIN LEVEL 6-10 Polyethylene Glycol (Miralax (For Daily Use) -) 17 gm PO DAILY [facility] Last Admin: 03/20/19 09:48 Dose: Not Given ASSESSMENT/PLAN: 48 y.o. F PMH MS diagnosed 12 years ago, HTN, HLD, depression, tobacco dependence presented with LE weakness and pain. #MS flare -C/w solumedrol 500mg BID x 3 days (Today day #3) -F/u MRI brain -T/L spine MRI w/ con: facet joint arthropathy. T2 midline pelvic cyst w/ int. septations 8x6.4cm;2.3x3.6cm left pelvic cyst w/ int. septations compressing urinary bladder -Physical therapy: full wt bearing w/ 2 wheel rolling walker -Pt needs new neurologist as she just moved here from [place] #Pain control -S/p Morphine 2 doses -Oxycodone 5mg q4h PO PRN #HTN -Lisinopril 5mg PO daily #HLD -Atorvastatin 40mg daily #Tobacco dependence -Nicotine patch 7mg TD daily #Depression -Cymbalta 20mg daily #FEN -No standing fluids -monitor lytes -Na controlled diet #DVT PPX -LVX 40mg SQ Visit type - Emergency Visit Emergency Visit: No - New Patient This patient is new to me today: No - Critical Care Critical Care patient: No ATTENDING PHYSICIAN STATEMENT I saw and evaluated the patient. I reviewed the resident's note and discussed the case with the resident. I agree with the resident's findings and plan as documented. SUBJECTIVE: OBJECTIVE: ASSESSMENT AND PLAN:
[2019-03-20] MEDS: methylPREDNISolone NA SUCC 1000 MG/8 ML VIAL IVPB SCH (18:32)
[2019-03-20] MEDS ORDERED: PT OWN MED DRAWER 7, Y5N ONE ×2 (22:22→22:29)
[2019-03-20] MEDS: MELATONIN 1 MG TABLET PO SCH (22:24)
[2019-03-20] MEDS: ATORVASTATIN CA 40 MG TABLET (FP) PO SCH (22:24)
[2019-03-21] MEDS ORDERED: PT OWN MED DRAWER 7, Y5N ONE ×3 (05:08→09:20)
[2019-03-21 08:08] VITALS: BP 148/88
--- NOTE | 2019-03-21 08:48 | PN ---
Progress Note (short form) - Note Progress Note: 48 year old AA female , originally from [place]. She recenlty move to [place] two weeks ago. She has hiistory of MS, MS , HTN. She has not seen neurologist for one year and she is not taking aubagio for six months. Patient also have histoyr of depression and being treated with cymbalta. She came to hospital as she felt she need to be treated with steroid. She do get thsese cramps in leg and worsenign of numbness in both thigh area. Patient is able to walk wtih walker. She usually get treated with iv steroid when she has these symptoms. She is feeling slightly better, no new symtoms. she is able to walk with walker and back to normal. Patient has mri of brain it showed enhancing left parietal lesion and spine was unremarkable NEUROLOGICAL EXAMINATION Alert oriented x 3, speech is normal, neck supple, vss eomi, pupils reactive, no face asymmetry, face sensation is normal , vf is normal motor 5/5 in upper extremity lower extremity grade 4 distally in dorsiflexion proximal hip flexion and extension 5- and she is able to walk diminished sensation below both groin area to pin prick and fine touch sensation in upper extremity is normal reflex are generalized diminished mri of T and L spine is unremarkable mri of brain showed left parietal lobe enhancing lesion Assessment/Plan MS of 15 years uses cane to ambulate and supposed to be on Aubagio. Patient came with worsening of pain and acute exacerbation. Plan: finished iv solumedrol, can be discharged home , spoke to patient and nursing and house staff. - pt - follow up with her neurologist as outpatient Thanking you so much Navin Kearns MD
[2019-03-21] MEDS: LISINOPRIL 5 MG TABLET (FP) PO SCH (09:17)
[2019-03-21] MEDS: DOCUSATE SODIUM 100 MG CAPSULE (FP) PO SCH (09:17)
[2019-03-21] MEDS: NICOTINE 7 MG/24 HOURS TOPICAL PATCH TD SCH (09:18)
[2019-03-21] MEDS: ENOXAPARIN NA (PORCINE) 40 MG/0.4 ML DISP.SYRIN SQ SCH (09:24)
[2019-03-21] MEDS: POLYETHYLENE GLYCOL 3350 119 GM BTL PO SCH (09:24)
[2019-03-21] MEDS: DULoxetine HCL 20 MG CAPSULE.DR PO SCH (09:24)
[2019-03-21 11:28] VITALS: PULSE 65; TEMP 98.1
--- NOTE | 2019-03-21 15:46 | PN ---
Teaching Attending Note Name of Resident: Bernadine Price ATTENDING PHYSICIAN STATEMENT I saw and evaluated the patient. I reviewed the resident's note and discussed the case with the resident. I agree with the resident's findings and plan as documented. SUBJECTIVE: Continued improvement in LE weakness/tingling. Pain appears controlled. No fever/chills. No headache or further visual disturbance. OBJECTIVE: Afebrile, Hemodynamically Stable. ambulating with walker. Last Vital Signs Temp Pulse Resp BP Pulse Ox 98.1 F 65 18 148/88 97 03/21/19 10:00 03/21/19 10:00 03/21/19 10:03/21/19 10:03/21/19 09:00 Heart - S1, S2, SM Lungs - clear to auscultation Abdomen - Soft, non-tender. Bowel Sounds normal. Extremities - no edema, no calf tenderness. Neuro - AAO x 3. Reduced Power bilateral LEs 4-5/5, altered sensation LEs. ASSESSMENT AND PLAN: 48 year old female with history of HLD, Depression, Multiple Sclerosis, presented with bilateral LE weakness, numbness, hand weakness, blurred vision. 1. Acute MS Flare Evaluated by Neuro MRI L/S Spine - bilateral pelvic cysts, no spinal cord lesions. MRI Brain - T2/Flair findings suggestive of demyelination Completed 3 days IV Solumedrol (Leukocytosis sec to Steroid) Walks with Walker/PT For out-patient PT on discharge to [facility] For out-patient Neuro follow up on discharge for further MS management. 2. HTN - continue Lisinopril. 3. Depression - continue Cymbalta 4. Urine Cx - Klebsiella. Asymptomatic, but given underlying diagnosis of MS and tendency to bladder neurogenicity and infection prone, to complete 3 days of Levofloxacin empirically. 5. Bilateral Pelvic Cysts - incidental finding on MRI - Asymptomatic. for Gynecology follow up on discharge. Medically optimized for discharge with out-patient neuro, gyne follow ups and out-patient PT.
--- NOTE | 2019-03-21 16:18 | DS ---
Physical Exam: SUBJECTIVE: Patient seen and examined. Pt is feeling well, no acute distress. Leg pain and weakness has significantly improved. OBJECTIVE: Vital Signs Period Temp Pulse Resp BP Sys/Casarez Pulse Ox Last 24 Hr 98.1 F-98.2 F 62-67 18-20 148-150/86-88 97 PHYSICAL EXAM GENERAL: The patient is awake, alert, and fully oriented, in no acute distress. HEENT: NCAT. No lymphadenopathy. LUNGS: Breath sounds equal, clear to auscultation bilaterally, no wheezes, no crackles, no accessory muscle use. HEART: Regular rate and rhythm, S1, S2 without murmur, rub or gallop. ABDOMEN: Soft, nontender, nondistended, normoactive bowel sounds, no guarding, no rebound, no masses. EXTREMITIES: 2+ pulses, warm, well-perfused, no edema. NEUROLOGICAL: Sensation intact b/l CN V, diminished CN V V1-V3 left side. Diminished sensation b/l LE R>L. 4/5 motor b/l LE &UE. Good ROM all extr. PSYCH: Good mood. Affect appropriate to stated mood. SKIN: No rashes or lesions noted LABS Laboratory Last Values WBC 25.0 K/mm3 (4.0-10.0) H 03/20/19 06:50 RBC 3.72 M/mm3 (3.60-5.2) 03/20/19 06:50 Hgb 11.4 GM/dL (10.7-15.3) 03/20/19 06:50 Hct 33.9 % (32.4-45.2) 03/20/19 06:50 MCV 91.0 fl (80-96) 03/20/19 06:50 MCH 30.5 pg (25.7-33.7) 03/20/19 06:50 MCHC 33.6 g/dl (32.0-36.0) 03/20/19 06:50 RDW 15.1 % (11.6-15.6) 03/20/19 06:50 Plt Count 201 K/MM3 (134-434) 03/20/19 06:50 MPV 10.1 fl (7.5-11.1) 03/20/19 06:50 Absolute Neuts (auto) 21.9 K/mm3 (1.5-8.0) H 03/20/19 06:50 Neutrophils % 87.5 % (42.8-82.8) H 03/20/19 06:50 Neutrophils % (Manual) 82.0 % (42.8-82.8) 03/20/19 06:50 Band Neutrophils % 0.0 % 03/20/19 06:50 Lymphocytes % 8.1 % (8-40) D 03/20/19 06:50 Lymphocytes % (Manual) 13.0 % (8-40) 03/20/19 06:50 Monocytes % 4.3 % (3.8-10.2) 03/20/19 06:50 Monocytes % (Manual) 5 % (3.8-10.2) 03/20/19 06:50 Eosinophils % 0.0 % (0-4.5) 03/20/19 06:50 Eosinophils % (Manual) 0.0 % (0-4.5) 03/20/19 06:50 Basophils % 0.1 % (0-2.0) 03/20/19 06:50 Basophils % (Manual) 0.0 % (0-2.0) 03/20/19 06:50 Myelocytes % (Man) 0 % (0-2) 03/20/19 06:50 Promyelocytes % (Man) 0 % (0-2) 03/20/19 06:50 Blast Cells % (Manual) 0 % (0-0) 03/20/19 06:50 Nucleated RBC % 0 % (0-0) 03/20/19 06:50 Metamyelocytes 0 % (0-2) 03/20/19 06:50 Hypochromia 0 03/20/19 06:50 Platelet Estimate Normal 03/20/19 06:50 Polychromasia 0 03/20/19 06:50 Poikilocytosis 0 03/20/19 06:50 Anisocytosis 0 03/20/19 06:50 Microcytosis 0 03/20/19 06:50 Macrocytosis 0 03/20/19 06:50 Sodium 140 mmol/L (136-145) 03/20/19 06:50 Potassium 4.3 mmol/L (3.5-5.1) 03/20/19 06:50 Chloride 107 mmol/L (98-107) 03/20/19 06:50 Carbon Dioxide 27 mmol/L (21-32) 03/20/19 06:50 Anion Gap 6 MMOL/L (8-16) L 03/20/19 06:50 BUN 25.7 mg/dL (7-18) H 03/20/19 06:50 Creatinine 0.9 mg/dL (0.55-1.3) 03/20/19 06:50 Est GFR (CKD-EPI)AfAm 87.02 03/20/19 06:50 Est GFR (CKD-EPI)NonAf 75.08 03/20/19 06:50 Random Glucose 203 mg/dL (74-106) H 03/20/19 06:50 Calcium 9.3 mg/dL (8.5-10.1) 03/20/19 06:50 Phosphorus 3.0 mg/dL (2.5-4.9) 03/20/19 06:50 Magnesium 2.2 mg/dL (1.8-2.4) 03/20/19 06:50 Total Bilirubin 0.3 mg/dL (0.2-1) 03/20/19 06:50 AST 13 U/L (15-37) L 03/20/19 06:50 ALT 36 U/L (13-61) 03/20/19 06:50 Alkaline Phosphatase 103 U/L (45-117) 03/20/19 06:50 Total Protein 6.7 g/dl (6.4-8.2) 03/20/19 06:50 Albumin 3.6 g/dl (3.4-5.0) 03/20/19 06:50 Urine Color Yellow 03/18/19 06:10 Urine Appearance Clear 03/18/19 06:10 Urine pH 5.0 (5.0-8.0) 03/18/19 06:10 Ur Specific [place] 1.006 (1.010-1.035) L 03/18/19 06:10 Urine Protein Negative (NEGATIVE) 03/18/19 06:10 Urine Glucose (UA) Negative (NEGATIVE) 03/18/19 06:10 Urine Ketones Negative (NEGATIVE) 03/18/19 06:10 Urine Blood Negative (NEGATIVE) 03/18/19 06:10 Urine Nitrite Negative (NEGATIVE) 03/18/19 06:10 Urine Bilirubin Negative (NEGATIVE) 03/18/19 06:10 Urine Urobilinogen 0.2 mg/dL (0.2-1.0) 03/18/19 06:10 Ur Leukocyte Esterase 1+ (NEGATIVE) H 03/18/19 06:10 Urine WBC (Auto) 1 /hpf (0-5) 03/18/19 06:10 Urine RBC (Auto) 1 /hpf (0-4) 03/18/19 06:10 Urine Casts (Auto) 2 /lpf (0-8) 03/18/19 06:10 U Epithel Cells (Auto) 0.6 /HPF (0-5/HPF) 03/18/19 06:10 Urine Bacteria (Auto) 372.8 /hpf (NEGATIVE) 03/18/19 06:10 HOSPITAL COURSE: 48 y.o. F PMH MS diagnosed 12 years ago, HTN, HLD, depression, tobacco dependence presented with LE weakness and pain. Pt started on 3-day IV solumedrol 500mg BID course; completed, tolerated well with improvement of LE symptoms. MRI brain showed no acute lesions. Recommended outpatient physical therapy. Incidental finding of pelvic cysts on thoracic-spine MRI; will f/u outpatient [employer]. While in hospital patient found to have asymptomatic bacteriuria w/ Klebsiella; covering empirically w/ 3-day Levofloxacin course to be completed 03/22/19. Discharging to [facility]. Date of Admission:03/18/19 CXR 03/18/19:No acute chest pathology. Possible linear scarring or atelectasis left base. Thoracic spine MRI w/ & w/o con 03/19/19: Normal signal intensity of the spinal cord. No evidence of intramedullary enhancing lesion. No evidence of paraspinal , epidural pathological enhancement. No evidence of disc herniation, central spinal canal stenosis. Lumbar spine MRI w/ & w/o on 03/19/19: No evidence of disc herniation, central spinal canal stenosis, neural foraminal stenosis. Facet joint arthropathy. No pathological bone marrow replacement, or bone marrow edema is seen. On T2 coronal, midline pelvic cyst with internal septations measures approximately 8 cm x 6.4 cm. Approximately 2.3 cm x 3.6 cm left pelvic cyst with internal septations, compressing the urinary bladder. Follow-up imaging recommended. MRI brain w/ & w/o con 03/20/19: 1. T2/FLAIR signal within the cerebral white matter as described above is nonspecific with a broad differential, including demyelination given the provided clinical history of multiple sclerosis. 2. Subcentimeter enhancement in the anterior left temporal white matter only identified on one sequence could be active demyelination. Clinical correlation and follow-up recommended. Date of Discharge: 03/21/19 Minutes to complete discharge: 36 Discharge Summary Reason For Visit: MULTIPLE SCLEROSIS Condition: Improved - Instructions Diet, Activity, Other Instructions: Your visit: You presented to the hospital for leg weakness. You were found to be having a flare up of your multiple sclerosis. You were treated with steroids with improvement of your symptoms. . You also had some bacteria in your urine. You were treated with antibiotics. You had some imaging studies done which showed some cysts within your pelvis. Please follow this up with an ObGyn. Medications Continue your home medications as prescribed. Follow up with: 1. Primary care provider (Dr. Matty Adamson) in 1 week. 2. Neurology (Dr. Kearns) in 1 week. 3. ObGyn (Dr. Naidu) as soon as possible. 4. Physical therapy Further Instructions: Please refrain from smoking cigarettes as this may be harmful to your health. Please return to the ER if you have any signs or symptoms of chest pain, shortness of breath, dizziness, nausea, vomiting, abdominal pains, diarrhea, fevers, fatigue or muscle pains. Please return to the ER if symptoms persist, worsen, or new symptoms arise. Referrals: Navin Kearns MD [Staff Physician] - Cintia Naidu MD [Staff Physician] - Matty Everett MD [Primary Care Provider] - Disposition: HOME - Home Medications Comprehensive Discharge Medication List: Ambulatory Orders Atorvastatin Calcium 40 mg PO HS 03/03/19 Duloxetine HCl [Cymbalta] 20 mg PO DAILY 03/03/19 Lisinopril 5 mg PO DAILY 03/03/19 Docusate Sodium [Colace -] 100 mg PO BID capsule 03/21/19 levoFLOXacin [Levaquin] 750 mg PO ONCE #1 tab 03/21/19 This patient is new to me today: No Emergency Visit: No Critical Care patient: No - Discharge Referral Referred to [facility] No ATTENDING PHYSICIAN STATEMENT I saw and evaluated the patient. I reviewed the resident's note and discussed the case with the resident. I agree with the resident's findings and plan as documented. SUBJECTIVE: OBJECTIVE: ASSESSMENT AND PLAN:
== END 2019-03-21 13:10 | disposition home or self-care (01) | DRG 43 ==
LOC: JER 03:47 → JERBED 06:09 → J6S 08:46
PROVIDERS: ADMIT Internal Medicine
DX: G35 Multiple sclerosis (principal); I10 Essential (primary) hypertension; J98.11 Atelectasis; E78.5 Hyperlipidemia, unspecified; N94.89 Other specified conditions associated with female genital organs and menstrual cycle; E66.9 Obesity, unspecified; Z68.30 Body mass index [BMI] 30.0-30.9, adult; F32.9 Major depressive disorder, single episode, unspecified; F17.210 Nicotine dependence, cigarettes, uncomplicated; B96.1 Klebsiella pneumoniae [K. pneumoniae] as the cause of diseases classified elsewhere; H53.8 Other visual disturbances; R82.71 Bacteriuria; G62.9 Polyneuropathy, unspecified
CPT/HCPCS: 36415; 70553-TC; 71045-TC-FY; 72157-TC; 72158-TC; 80053; 81003; 83735; 84100; 85025; 87086; 87186; 93005; 93010; 97116-GP; 97161-GP; 99284-25; A9579

== ENCOUNTER 2019-06-03 01:06 | Emergency (ER) | payer OTHER ==
[2019-06-03 01:23] VITALS: BP 146/95; PULSE 81; TEMP 98.3; BMI 32.5
--- NOTE | 2019-06-03 01:23 | PDOC ---
Attending Attestation - Resident Resident Name: Stephany Savage - ED Attending Attestation I have performed the following: I have examined & evaluated the patient, The case was reviewed & discussed with the resident, I agree w/resident's findings & plan - HPI HPI: 06/03/19 02:30 Pt comes with an "MS flare" Pt is requesting dilaudid. SHe was here 3 mos ago with normal MRI T and L spine as well as normal brain MRI ; only one enhancing lesion of the parietal area. pt has pain "everywhere" We will explain to the patient that we cannot give her triplicate/narcotic meds - Physicial Exam PE: 06/03/19 04:29 Normal exam. Pt afebrile. Lungs clear Heart RRR Abd soft NT ND Flank no pain pu has pain in her legs and her arms. Possibly consistent with neuropathy or with fibromyalgia. (Pt given pain meds. She agrees to not having narcotics in the ER.) - Medical Decision Making 06/03/19 04:31 Pt has normal labs; pt has normal vitals; pt is feeling better in the ER. BUN/Cr ratio is high so we will hydrate patient. Once she is hydrated she will be discharged home. 06/03/19 05:01 Pt is feeling better and she is ready to go home.
--- NOTE | 2019-06-03 01:59 | PDOC ---
History of Present Illness <Nevaeh Romero - Last Filed: 06/03/19 04:32> - History of Present Illness Initial Comments: Shirin Richards is a 48yo woman with a PMH of MS who presents reporting an MS flare. She states that she recently restarted her MS medication but has been "overdoing it" during the past several days. This evening, she started having severe full body pain, especially in her back, shoulders, and legs. She also reports feeling altered sensation in her b/l legs. Ms Richards requests Dilaudid, stating that she always receives that medication and it is the only thing that helps her pain. She denies any recent fevers, chills, cough, chest pain, difficulty breathing, focal weakness, vision changes, or other neurological symptoms. <Stephany Savage - Last Filed: 06/03/19 04:49> - General Chief Complaint: Pain Stated Complaint: GENERALIZED PAIN Time Seen by Provider: 06/03/19 01:18 Past History <Nevaeh Romero - Last Filed: 06/03/19 04:32> - Past Medical History Anemia: No Asthma: No Cancer: No Cardiac Disorders: No CVA: No COPD: No CHF: No Dementia: No Diabetes: No GI Disorders: No Disorders: No HTN: Yes Hypercholesterolemia: Yes Liver Disease: No Seizures: No Thyroid Disease: No - Surgical History Abdominal Surgery: No Appendectomy: No Cardiac Surgery: No Cholecystectomy: No Lung Surgery: No Neurologic Surgery: No Orthopedic Surgery: Yes (ACL reconstruction) - Psycho Social/Smoking Cessation Hx Smoking History: Never smoked Have you smoked in the past 12 months: No Number of Cigarettes Smoked Daily: 4 Information on smoking cessation initiated: No 'Breaking Loose' booklet given: 03/18/19 Hx Alcohol Use: No Drug/Substance Use Hx: No Substance Use Type: None Hx Substance Use Treatment: No <Stephany Savage - Last Filed: 06/03/19 04:49> - Past Medical History Allergies/Adverse Reactions: Allergies Allergy/AdvReac Type Severity Reaction Status Date / Time acetaminophen [From Vicodin] Allergy Verified 06/03/19 01:21 hydrocodone [From Vicodin] Allergy Verified 06/03/19 01:21 tramadol Allergy Verified 06/03/19 01:21 Home Medications: Ambulatory Orders Atorvastatin Calcium 40 mg PO HS 03/03/19 Duloxetine HCl [Cymbalta] 20 mg PO DAILY 03/03/19 Lisinopril 5 mg PO DAILY 03/03/19 Docusate Sodium [Colace -] 100 mg PO BID capsule 03/21/19 levoFLOXacin [Levaquin] 750 mg PO ONCE #1 tab 03/21/19 Review of Systems - Review of Systems Comments:: General: No fevers, no chills, no weight or appetite change, no malaise HEENT: No changes in vision, no changes in hearing, no congestion, no sore throat CV: No chest pain, no palpitations, no LE edema Pulm: No SOB, no cough, no wheezing GI: No nausea or vomiting, no change in bowel habits, no melena : No frequency, no urgency, no dysuria Musc: No back pain, no joint swelling, no recent injury Skin: No rash, no lesions, no erythema Endo: No excessive thirst, no heat/cold intolerance Heme: No unusual bruising or bleeding, no swollen glands Neuro: No syncope. See HPI Vasc: No claudication Psych: No recent change in mood, no SI or HI <Stephany Savage - Last Filed: 06/03/19 04:49> *Physical Exam - Vital Signs Last Vital Signs Temp Pulse Resp BP Pulse Ox 98.3 F 81 20 146/95 98 06/03/19 01:21 06/03/19 01:21 06/03/19 01:21 06/03/19 01:21 06/03/19 01:21 <Nevaeh Romero - Last Filed: 06/03/19 04:32> - Vital Signs Last Vital Signs Temp Pulse Resp BP Pulse Ox 98.3 F 81 20 146/95 98 06/03/19 01:21 06/03/19 01:21 06/03/19 01:21 06/03/19 01:21 06/03/19 01:21 - Physical Exam Comments: General: Comfortable, no acute distress HEENT: PERRL, EOMI, MMM, voice normal, normal neck ROM, no LAD Cards: RRR, no murmur appreciated Pulm: Comfortable on room air, clear to auscultation bilaterally Abd: Soft, nontender, nondistended Ext: Atraumatic. No LE edema. Moves all extremities. Strength 3/5 in BLE. 5/5 in BUE. Skin: Normal color, no rashes or lesions Neuro: A&Ox3, CN grossly intact, normal speech, motor/sensory and symmetric. Sensation to light touch intact but pt reports feels "different" than normal Psych: Mood appropriate to situation <Stephany Savage - Last Filed: 06/03/19 04:49> ED Treatment Course - LABORATORY CBC & Chemistry Diagram: 06/03/19 02:30 06/03/19 02:30 - ADDITIONAL ORDERS Additional order review: Laboratory Results 06/03/19 06/03/19 02:30 02:30 Sodium 142 Potassium 4.3 Chloride 108 H Carbon Dioxide 27 Anion Gap 7 L BUN 35.6 H Creatinine 1.0 Est GFR (CKD-EPI)AfAm 76.61 Est GFR (CKD-EPI)NonAf 66.10 Random Glucose 141 H Calcium 9.6 Magnesium Cancelled 1.9 Total Bilirubin 0.2 AST 32 ALT 62 H Alkaline Phosphatase 105 Total Protein 6.8 Albumin 3.8 06/03/19 02:30 RBC 4.11 MCV 92.8 MCHC 32.5 RDW 14.8 MPV 10.0 Neutrophils % 32.2 L D Lymphocytes % 54.4 H D Monocytes % 9.8 D Eosinophils % 2.2 D Basophils % 1.4 D - Medications Given in the ED: ED Medications Discontinued Medications Generic Name Dose Route Start Last Admin Trade Name Phil PRN Reason Stop Dose Admin Acetaminophen 1,000 mg 06/03/19 02:58 06/03/19 03:36 Ofirmev Injection - IVPB 06/03/19 02:59 1,000 mg ONCE ONE Administration Lidocaine 1 patch 06/03/19 02:37 06/03/19 03:36 Lidoderm Patch - TP 06/03/19 02:38 1 patch ONCE ONE Administration Sodium Chloride 500 ml 06/03/19 04:09 06/03/19 04:29 Normal Saline - IV 06/03/19 04:10 500 ml ONCE ONE Administration <Nevaeh Romero - Last Filed: 06/03/19 04:32> - LABORATORY CBC & Chemistry Diagram: 06/03/19 02:30 06/03/19 02:30 <Stephany Savage - Last Filed: 06/03/19 04:49> Medical Decision Making - Medical Decision Making 06/03/19 01:59 Shirin Richards is a 48yo woman with a PMH of MS who presents reporting an MS flare, with full body pain and altered sensation in her BLE. - Possible MS flare, though request for dilaudid specifically is concerning. Advised Ms Richards that she will not be given dilaudid unless non-narcotic medications fail to improve her pain - CBC, chemistry, CXR, EKG for evaluation - Will reassess. Neuro consult and admission if needed - Recent MRI completed in March. pt had one parietal lesion but MRI spine and brain were otherwise unremarkable. No imaging at this time 06/03/19 02:33 - Pt declining IV acetaminophen. States that she does not want any medication other than Dilaudid - Pt allowed labs to be drawn and sent. Pending 06/03/19 03:18 - Labs without concerning abnormalities - Pt now agreeing to acetaminophen 06/03/19 04:44 - Lengthy discussion with pt and Dr Romero. Pt to be given IV hydration but will follow up with her regular neurologist. - Plan to d/c home after IVF Discussed with Dr Nick Savage PGY2 <Stephany Savage - Last Filed: 06/03/19 04:49> Discharge - Discharge Information Problems reviewed: Yes - Admission No <Nevaeh Romero - Last Filed: 06/03/19 04:32> - Discharge Information Problems reviewed: Yes - Admission No <Stephany Savage - Last Filed: 06/03/19 04:49> - Discharge Information Clinical Impression/Diagnosis: Neuropathy, Fibromyalgia Condition: Improved Disposition: HOME - Patient Discharge Instructions Patient Printed Discharge Instructions: Fibromyalgia (Alternative Therapy), Peripheral Neuropathy, Fibromyalgia Additional Instructions: Discharge Instructions; You were seen in the emergency department for generalized body pain. Your blood tests did not show any concerning abnormalities. You were given a pain medication and IV fluids. Continue to take all of your home medications as prescribed. You may take 650-1000mg acetaminophen (Tylenol) or 400-600mg ibuprofen (Advil, Motrin) every 6-8 hours as needed for pain. Take ibuprofen with food. Do not take more than 4000mg of acetaminophen from any source per day. Make an appointment to see your neurologist, Dr Regalado, within the next 2-3 days for follow up. Seek immediate medical care for any worsening neurological symptoms, one-sided weakness, numbness, changes in vision, or any other medical emergency.
[2019-06-03 02:35] LABS: BASO % 1.4 % (0-2.0); EOS % 2.2 % (0-4.5); HEMATOCRIT 38.1 % (32.4-45.2); HEMOGLOBIN 12.4 GM/dL (10.7-15.3); LYMPH % 54.4 % (8-40); MCH 30.2 pg (25.7-33.7); MCHC 32.5 g/dl (32.0-36.0); MEAN CELL VOLUME 92.8 fl (80-96); MONO % 9.8 % (3.8-10.2); NEUT % 32.2 % (42.8-82.8); PLATELET COUNT 179 K/MM3 (134-434); RBC 4.11 M/mm3 (3.60-5.2); RDW 14.8 % (11.6-15.6); WHITE BLOOD COUNT 7.5 K/mm3 (4.0-10.0)
[2019-06-03] MEDS ORDERED: LIDOCAINE 5% TOPICAL PATCH TP ONE (02:37)
[2019-06-03] MEDS ORDERED: ACETAMINOPHEN 1000 MG/100 ML VIAL (NON FORMULARY) IVPB ONE (02:58)
[2019-06-03] MEDS ORDERED: LIDOCAINE 5% TOPICAL PATCH ONE (03:01)
[2019-06-03] MEDS ORDERED: ACETAMINOPHEN INJECTION 100 ML IVPB ONE (03:01)
[2019-06-03 03:11] LABS: ALBUMIN 3.8 g/dl (3.4-5.0); BILIRUBIN,TOTAL 0.2 mg/dL (0.2-1); BLOOD UREA NITROGEN 35.6 mg/dL (7-18); CALCIUM 9.6 mg/dL (8.5-10.1); MAGNESIUM 1.9 mg/dL (1.8-2.4); POTASSIUM 4.3 mmol/L (3.5-5.1); TOT PROT 6.8 g/dl (6.4-8.2)
[2019-06-03] MEDS ORDERED: SODIUM CHLORIDE 0.9% 500 ML INFUS.BAG IV ONE (04:09)
[2019-06-03] MEDS ORDERED: LIDOCAINE PATCH REMOVAL MC SCH (22:00)
== END 2019-06-03 05:11 | disposition home or self-care (01) ==
LOC: JER 01:06
PROC: 3E033NZ Introduction of Analgesics, Hypnotics, Sedatives into Peripheral Vein, Percutaneous Approach (ICD-10-PCS; principal; 2019-06-03)
DX: M79.7 Fibromyalgia (principal); G62.9 Polyneuropathy, unspecified; G35 Multiple sclerosis; I10 Essential (primary) hypertension; E78.00 Pure hypercholesterolemia, unspecified; Z88.5 Allergy status to narcotic agent; Z88.6 Allergy status to analgesic agent
CPT/HCPCS: 36415; 80053; 83735; 85025; 96374; 99282-25; J0131